=== PATIENT | female | born 1990 | race Caucasian/White ===

== ENCOUNTER 2020-11-20 17:11 | Emergency (ER) | payer BC, SELFPAY ==
[2020-11-20 17:11] VITALS: BP 135/78; PULSE 88; RESP 22; TEMP 36.7; O2SAT 99; BMI 20.7
--- NOTE | 2020-11-20 18:27 | HMH.EDUTC ---
[facility] [place] Clinical Impression: Close exposure to COVID-19 virus Disposition: Home, Self-Care Condition on Discharge: Good Instructions: DI for COVID-19 (Suspected or Confirmed ), Coronavirus Disease 2019, Preventing the Spread of Coronavirus Discharge Instructions Additional Instructions: *Monitor Temp, Over the counter Motrin or Tylenol as directed/as needed Tylenol every 4 hours and Motrin every 6 hours (as long as your family doctor has told you that you can take it) for fever or pain. and straight to ER if unable to lower temp less than 101.0 after medication given *Warm salt water gargles may help to soothe the throat *Throat Lozenges *Warm fluids like tea with honey may help to soothe the throat *Sleep elevated *Humidifier/Vaporizer Follow up IMMEDIATELY for new or worsening symptoms or no Noticeable improvement over the next 48-72 hours. 911 for difficulty breathing or swallowing You were tested for today for COVID19 your test result should be back in the next 24-48 hours, you may call to the [facility] to see if your test results are back in the next 48 hours [phone] [facility] hours are 9am-9pm You was given a handout with instructions for Self Quarantine and Self isolation for while you wait on test results and what to do if they are positive If you are positive the Health Dept will be contacting you also Make sure to take your Vitamins Vit. C Vit D and Zinc if you can take them Prescriptions: guaiFENesin [Mucinex 600mg tablet] 1 - 2 tab PO Q12H PRN #20 tab.er.12h PRN Reason: Congestion Transmission Status: Pending to [facility] 384 Referrals: Provider,Referral, [Primary Care Provider] - As needed Forms: Work/School Release Time of Disposition: 18:33 Medical Decision Making - Pb Inquiry Pt receiving controlled substance: No Pb was queried for this patient: No Vital Signs: 11/20/20 17:11 Temperature 98.1 F Temperature Source Oral Pulse Rate [Left Radial] 88 Respiratory Rate 22 Blood Pressure [Right Arm] 135/78 Blood Pressure Mean [Right Arm] 97 Blood Pressure Source [Right Arm] Automatic Cuff Blood Pressure Position [Right Arm] Sitting 02 Sat by Pulse Oximetry 99 Oxygen Delivery Method Room Air Orders (Tests/Meds): ORDERS Category Date Time Status Covid-19 Nasal PCR ([facility]) Routine Lab 11/20/20 18:10 Received [facility] HPI - General Stated complaint: covid test Time Seen by Provider: 11/20/20 18:27 Mode of Arrival: Ambulatory Source of Information: Patient Limitations: No Limitations Description of Symptoms (Recalled from Triage Doc. by RN): covid test, direct exposure, loss of taste smell HEENT Symptoms (Recalled from RN notes): Yes Resp Symptoms (Recalled from RN notes): No Skin Symptoms (Recalled from RN notes): No MS Symptoms (Recalled from RN notes): No Functional Status (Recalled from RN notes): na - History of Present Illness Provider Complaint: Patient states that her recently tested positive for COVID States that she has been having body aches, chills, fever nasal congestion and feeling like it is trying to move in her chest with cough States that she wanted to get tested for COVID Denies SOA Recently loss taste and smell - Related Data Home Medications Medication Instructions Recorded Confirmed Cetirizine HCl [Zyrtec] 10 mg PO DAILY 11/17/17 11/17/17 Previous Rx's Medication Instructions Recorded Polymyxin B Sulf/Trimethoprim 2 drops EYE-LEFT Q6H #1 bottle 11/17/17 [Polytrim Eye Drops] guaiFENesin [Mucinex 600mg tablet] 1 - 2 tab PO Q12H PRN #20 11/20/20 tab.er.12h Allergies Allergy/AdvReac Type Severity Reaction Status Date / Time No Known Allergies Allergy Verified 08/26/17 18:01 - Worker's Comp Is this a Worker's Comp case?: No [facility] History - Hepatitis A Screen Drug use history?: No High risk sexual behaviors?: No History of sexually transmitted infection?: No Currently employed?: 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
[2020-11-20 18:47] LABS: UTC Pregnancy Test, Urine Negative (Negative)
[2020-11-20 19:16] VITALS: BP 135/78; PULSE 88; RESP 22; TEMP 36.7; O2SAT 99
--- NOTE | 2020-11-21 10:52 | PC.NURSE ---
PATIENT NOTIFIED OF POSITIVE COVID TEST AT THIS TIME
== END 2020-11-20 19:17 | disposition home or self-care (01) ==
PROVIDERS: Emergency Provider Nurse Practitioner
DX: U07.1 COVID-19 (principal); R43.9 Unspecified disturbances of smell and taste
CPT/HCPCS: 81025; 99202; G0463; U0003

== ENCOUNTER → 2022-06-07 11:03 | Outpatient (CLI) | payer BC, SELFPAY ==
[2022-06-08 09:27] LABS: Progesterone 20.8 ng/mL (.)
== END ==
PROVIDERS: Visit Provider Obstetrics & Gynecology
DX: N92.6 Irregular menstruation, unspecified (principal); Z32.00 Encounter for pregnancy test, result unknown
CPT/HCPCS: 36415; 84144; 84702

== ENCOUNTER → 2022-06-21 17:29 | Outpatient (CLI) | payer BC, SELFPAY | PROVIDERS: Visit Provider Obstetrics & Gynecology | DX: Z34.90 Encounter for supervision of normal pregnancy, unspecified, unspecified trimester (principal) | CPT/HCPCS: 87086; 87088; 87186 ==

== ENCOUNTER → 2022-07-12 10:45 | Outpatient (CLI) | payer BC, SELFPAY ==
[2022-07-12 12:08] LABS: Basophils % 0.3 % (0.1-2.0); Eosinophils # 0.1 K/mm3 (0.0-0.4); Eosinophils % 0.7 % (0.1-12.0); Hematocrit 40.7 % (37.0-47.0); Hemoglobin 12.8 g/dL (12.2-16.2); Lymphocytes # 1.3 K/mm3 (0.7-4.5); Lymphocytes % 16.1 % (10-50); Mean Corpuscular HGB Conc 31.4 g/dL (31.8-35.4); Mean Corpuscular Hemoglobin 27.2 pg (27.0-31.2); Mean Corpuscular Volume 86.7 fl (81-99); Mean Platelet Volume 8.1 fl (7.4-10.4); Monocytes # 0.3 K/mm3 (0.1-1.0); Monocytes % 4.1 % (1.7-9.3); Neutrophils # 6.3 K/mm3 (1.8-7.8); Neutrophils % 78.8 % (37.0-80.0); Platelet Count 314 K/mm3 (142-424); Red Blood Count 4.69 M/mm3 (4.20-5.40); Red Cell Distribution Width 13.5 % (11.5-17.5); White Blood Count 7.9 K/mm3 (4.8-10.8)
[2022-07-13 12:14] LABS: Rapid Plasma Reagin Ab Titer Non Reactive (NonRea<1:1)
[2022-07-14 04:11] LABS: HIV Screen 4th Generation wRfx NON REACTIVE; Hepatitis B Surface Antigen NEGATIVE; Hepatitis C Antibody NON REACTIVE; Rubella Antibodies, IgG <0.90
== END ==
PROVIDERS: Visit Provider Obstetrics & Gynecology
DX: Z34.90 Encounter for supervision of normal pregnancy, unspecified, unspecified trimester (principal)
CPT/HCPCS: 36415; 85025; 86593; 86703; 86762; 86850; 87340; 87380; G0432

== ENCOUNTER → 2022-08-12 13:35 | Outpatient (CLI) | payer BC, SELFPAY ==
--- NOTE | 2022-08-12 13:36 | US_ITS ---
PROCEDURE INFORMATION: Exam: US ; Follow up Exam date and time: 08/12/2022 1:47 PM Age: 32 years old Clinical indication: Screening exam; Routine US, uterus; Additional info: 20 week anatomy scan LABS AND CLINICAL REPORTS: Last menstrual period start date: 03/27/2022 TECHNIQUE: Imaging protocol: Transabdominal ultrasound of the uterus, real time with image documentation. Follow-up (eg, re-evaluation of size by measuring standard growth parameters and amniotic fluid volume, re-evaluation of organ system(s) suspected or confirmed to be abnormal on a previous scan). COMPARISON: No relevant prior studies available. Findings: Gestation: Single intrauterine in a cephalic position at the present time. heart rate: Normal range heart rate measured at 146 BPM. cardiac arrhythmia noted by the technologist during the exam. Placenta: Placenta is anterior. No evidence of placenta previa. Amniotic fluid: Amniotic fluid volume appears adequate. Cervix is closed measuring 3.3 cm in length. anatomy head, spine, stomach, kidneys, urinary bladder and anterior abdominal wall and three-vessel cord were normally identified. BIOMETRY: Head circumference-19 weeks 2 days BPD-19 weeks 4 days. Humerus-20 weeks 6 days Femur length-20 weeks 4 days Abdominal circumference-20 weeks 3 days IMPRESSION: 1. Single viable intrauterine in a cephalic position whose gestational age based on present parameters is 20 weeks 2 days. 2. heart rate is within normal range however arrhythmia was noted by the technologist during the exam.
== END ==
PROVIDERS: PCP Obstetrics & Gynecology; Visit Provider Obstetrics & Gynecology
DX: Z34.90 Encounter for supervision of normal pregnancy, unspecified, unspecified trimester (principal); Z3A.20 20 weeks gestation of pregnancy
CPT/HCPCS: 76811

== ENCOUNTER → 2022-10-25 15:07 | Outpatient (CLI) | payer BC, SELFPAY ==
--- NOTE | 2022-10-25 15:13 | US_ITS ---
PROCEDURE: US OB FOLLOW UP CLINICAL INDICATION: sga, with JOHN COMPARISON: US US OB /MATERNAL DETAIL from 08/12/2022 FINDINGS: Transabdominal sonography was performed of the uterus. The following parameters are obtained: From her established due date she is 31weeks 1day Viable fetus in the cephalic presentation with an anterior placenta grade 1. heart rate: 134bpm bpm. BPD: 30weeks 1day OFD: 32weeks HC: 31weeks 4days AC: 31weeks 1day FL: 31weeks 5days Estimated weight is 3 pounds 13 ounces, 1721 grams. 40th percentile HC/AC: 1.06 Cephalic index: 0.73 FL/BPD: 0.81 FL/AC: 0.23 Amniotic fluid index: 11.43cm No obvious anomalies evident. profile seen, stomach, bladder, kidneys, three-vessel cord, four chamber heart, LVOT, RVOT appear normal. Cervix: 3.5 cm IMPRESSION: 1. Viable fetus in the cephalic presentation with an anterior placenta grade 1. 2. Fluid is within normal limits. 3. There has been good interval growth with the fetus at the 40th percentile. 4. There is no arrhythmia seen today. Regular heart rate. Dictated by: Jason Dubois MD 10/25/2022 19:26 Jason Dubois MD in OV 10/25/2022 19:26
== END ==
PROVIDERS: PCP Obstetrics & Gynecology; Visit Provider Obstetrics & Gynecology
DX: O28.8 Other abnormal findings on antenatal screening of mother (principal); O36.5930 Maternal care for other known or suspected poor fetal growth, third trimester, not applicable or unspecified; Z3A.31 31 weeks gestation of pregnancy
CPT/HCPCS: 76816; 76820

== ENCOUNTER 2022-12-20 09:35 | Outpatient (CLI) | payer BC, SELFPAY ==
[2022-12-20 09:42] VITALS: BMI 30.5
[2022-12-20 09:52] LABS: Microscopic, Urine URINE MICROSCOPIC (MICROSCOPIC)
[2022-12-20 09:53] VITALS: BP 144/97; PULSE 100; RESP 20; TEMP 36.9; O2SAT 99
[2022-12-20 09:53] LABS: Appearance,Urine SL CLOUDY (Clear); Bilirubin,Urine Negative (Negative); Blood, Urine Negative (Negative); Color,Urine YELLOW (Yellow); Glucose,Urine (UA) Negative (Negative); Ketones,Urine Negative (Negative); Leukocyte Esterase,Urine TRACE (Negative); Nitrate,Urine Negative (Negative); PH,Urine 7.5 (5.0-8.5); Protein,Urine Negative (Negative); Urobilinogen,Urine 0.2 EU/dl (0.2)
[2022-12-20 10:04] LABS: Amphetamine/Metha Screen,Urine Negative ng/ml (<1000); Barbiturates Screen,Urine Negative ng/ml (<200)
[2022-12-20 10:05] VITALS: BP 144/97; PULSE 100; RESP 20; TEMP 36.9; O2SAT 99; BMI 30.5
[2022-12-20 10:05] LABS: Benzodiazepines Screen,Urine Negative ng/ml (<200); Cannabinoid Screen,Urine Negative ng/ml (<50); WBC,Urine Occasional #/hpf (0-3)
[2022-12-20 10:06] LABS: Bacteria,Urine Trace /lpf; Cocaine Screen,Urine Negative ng/ml (<300)
[2022-12-20 10:07] LABS: Methadone Screen,Urine Negative ng/ml (<300)
[2022-12-20 10:08] LABS: Opiate Screen,Urine Negative ng/ml (<300); Phencyclidine Screen,Urine Negative ng/ml (<25)
[2022-12-20 10:09] LABS: Basophils % 0.2 % (0.1-2.0); Eosinophils # 0.1 K/mm3 (0.0-0.4); Eosinophils % 0.9 % (0.1-12.0); Hematocrit 41.8 % (37.0-47.0); Hemoglobin 13.3 g/dL (12.2-16.2); Lymphocytes # 1.3 K/mm3 (0.7-4.5); Lymphocytes % 12.2 % (10-50); Mean Corpuscular HGB Conc 31.9 g/dL (31.8-35.4); Mean Corpuscular Hemoglobin 28.4 pg (27.0-31.2); Mean Platelet Volume 8.7 fl (7.4-10.4); Monocytes # 0.5 K/mm3 (0.1-1.0); Monocytes % 4.6 % (1.7-9.3); Neutrophils # 8.7 K/mm3 (1.8-7.8); Neutrophils % 82.1 % (37.0-80.0); Platelet Count 278 K/mm3 (142-424); Red Cell Distribution Width 14.6 % (11.5-17.5); White Blood Count 10.6 K/mm3 (4.8-10.8)
[2022-12-20 10:20] LABS: Alanine Aminotransferase 24 U/L (12-78); Anion Gap 15.1 mEq/L (5-15); Aspartate Amino Transferase 34 U/L (14-36); Blood Urea Nitrogen 8 mg/dl (7-17); Calcium 9.6 mg/dl (8.4-10.2); Carbon Dioxide 20 mmol/L (22.0-30.0); Chloride 104 mmol/L (98-107); Creatinine Clearance Estimated 237 mL/min (50-200); Estimated Glomerular Filt Rate 145 ml/min (>60); GFR (African American) 175 ML/MIN (>60); Glucose 90 mg/dl (74-100); Potassium 4.1 mmoL/L (3.5-5.1); Sodium 135 mmol/L (136-145); Uric Acid 5.5 mg/dl (2.5-6.2)
[2022-12-20 10:24] LABS: D-Dimer 1.71 ug/mL (0.0-0.5)
[2022-12-20 10:34] LABS: Activated Partial Thrombo Time 25.8 seconds (22.8-30.6); Fibrinogen 506 mg/dL (229.9-363.5); INR 0.88 (0.9-1.1); Prothrombin Time 9.6 seconds (10.1-12.5)
[2022-12-20 11:44] LABS: Creatinine,Urine Random 57 mg/dL (Not Estab.)
[2022-12-20 11:56] LABS: Microalbumin < 6.000 mg/L (0-16.7)
== END 2022-12-20 12:35 | disposition home or self-care (01) ==
LOC: OBOUT 09:37 → OB 09:37
PROVIDERS: Visit Provider Obstetrics & Gynecology
DX: O13.3 Gestational [pregnancy-induced] hypertension without significant proteinuria, third trimester (principal); Z3A.39 39 weeks gestation of pregnancy
CPT/HCPCS: 36415; 59025; 80048; 80305; 81001; 82043; 82570; 84450; 84460; 84550; 85025; 85378; 85384; 85610; 85730; G0463

== ENCOUNTER 2022-12-20 21:15 | Inpatient (IN) | payer BC, SELFPAY ==
[2022-12-20 16:33] VITALS: BMI 30.5
[2022-12-20 16:34] VITALS: BP 146/88; PULSE 94; RESP 18; TEMP 36.7; O2SAT 98
[2022-12-20 17:41] LABS: Basophils % 0.1 % (0.1-2.0); Eosinophils # 0.1 K/mm3 (0.0-0.4); Eosinophils % 0.3 % (0.1-12.0); Hematocrit 40.7 % (37.0-47.0); Hemoglobin 13.2 g/dL (12.2-16.2); Lymphocytes # 1.5 K/mm3 (0.7-4.5); Lymphocytes % 10.1 % (10-50); Mean Corpuscular HGB Conc 32.5 g/dL (31.8-35.4); Mean Corpuscular Hemoglobin 28.2 pg (27.0-31.2); Mean Corpuscular Volume 86.6 fl (81-99); Mean Platelet Volume 9.1 fl (7.4-10.4); Monocytes # 0.5 K/mm3 (0.1-1.0); Monocytes % 3.5 % (1.7-9.3); Neutrophils # 12.4 K/mm3 (1.8-7.8); Neutrophils % 85.9 % (37.0-80.0); Platelet Count 302 K/mm3 (142-424); Red Cell Distribution Width 14.5 % (11.5-17.5); White Blood Count 14.5 K/mm3 (4.8-10.8)
[2022-12-20 17:46] LABS: MANUAL DIFFERENTIAL MANUAL DIFFERENTIAL (MANUAL DIFF)
[2022-12-20 18:05] LABS: Lymphocytes % 12 % (10-50); Monocytes % 1 % (2-9); Neutrophils % 87 % (42-76); Platelet Estimate Normal; RBC Morphology Normal; Total Cells Counted 100
[2022-12-20 18:41] VITALS: BP 146/88; PULSE 94; RESP 18; TEMP 36.7; O2SAT 99; BMI 30.5
[2022-12-20 19:36] VITALS: BP 146/82; PULSE 82; RESP 17; TEMP 37.1; O2SAT 98
[2022-12-20 20:53] VITALS: BP 145/88; PULSE 96; RESP 18; O2SAT 97
[2022-12-20 22:13] VITALS: BP 129/73; PULSE 73; RESP 17; TEMP 36.7; O2SAT 97
[2022-12-20 23:02] VITALS: BP 127/70; PULSE 76; RESP 17; O2SAT 97
[2022-12-21 00:06] VITALS: BP 138/79; PULSE 103; RESP 18; O2SAT 97
[2022-12-21 01:35] VITALS: BP 117/61; PULSE 71; RESP 17; O2SAT 97
[2022-12-21 03:08] VITALS: BP 137/83; PULSE 75; RESP 17; O2SAT 97
[2022-12-21 04:07] VITALS: BP 140/90; PULSE 111; RESP 18; TEMP 37.1; O2SAT 97
[2022-12-21 06:36] VITALS: BP 137/94; PULSE 114
--- NOTE | 2022-12-21 08:25 | EXP.OB.APHP ---
OB - H&P: HPI Antepartum History of Present Illness Chief complaint: Gestational Hypertension History of present illness: Mrs Sadia Lugo is a 32 yo at 39w2d who presented to [facility] L&D for induction of labor secondary to gestational hypertension. She has had good care. She has had mild and normotensive blood pressures. History of Present Criteria for establishing EDC:: LMP confirmed by 1st trimester US care: good care Ultrasounds: normal mid trimester US Obstetrical complications: gestational hypertension Medical complications: none Labs Blood type: O (+) positive Rubella: nonimmune RPR/VDRL: nonreactive GBS status: positive HBsAG: [facility] Disclaimer: The information contained in this section may have been updated after the patient was seen, as this information can be updated by other users. Medical History (Updated 12/21/22 @ 08:32 by Muna Munroe DO) 39 weeks gestation of Elevated blood pressure affecting in third trimester, antepartum Gestational hypertension Group B streptococcal bacteriuria Hemorrhoids during in third trimester Nausea and vomiting during Prolapse of female pelvic organs Rubella non-immune status, antepartum Surgical History No significant past surgical history Family History Other Depression Social History Smoking Status: Never smoker alcohol intake: current current occupational status: employed Travel in the last 8 weeks: None Review of Systems Review of Systems Review of systems:: pertinent systems reviewed and negative unless documented below Meds Home Medications and Allergies Home Medications Medication Instructions Recorded Confirmed Type vit no.95-ferrous 1 tab PO DAILY Supplement 12/21/22 12/21/22 History fumarate 28 mg-folic acid 800 mcg tablet () New Prescriptions to Start Prescriptions: Allergies Allergy/AdvReac Type Severity Reaction Status Date / Time No Known Allergies Allergy Verified 12/20/22 08:50 OB - H&P: Exam Physical Exam Vital signs: Temp Pulse Resp BP Pulse Ox O2 Del Method 98.8 F 114 H 18 137/94 H 97 Room Air 12/21/22 04:07 12/21/22 06:36 12/21/22 04:07 12/21/22 06:36 12/21/22 04:07 12/21/22 04:07 Constitutional no acute distress and cooperative Routine HEENT Exam Head: Present normocephalic and atraumatic Eye: Absent conjunctivae pink ENT: Present mucous membranes moist and dentition normal Routine Neck Exam Present full ROM Routine Respiratory Exam Present CTA bilaterally and normal respiratory effort Routine Cardiovascular Exam Present RRR Routine Abdominal Exam Present soft (Gravid); Absent tenderness Routine Rectal Exam Patient deferred: visual exam Routine Exam External: Present normal urethra appearance; Absent erythema, tenderness, lesions or lacerations Routine Extremities Exam Present full ROM; Absent edema or calf tenderness Routine Neurological Exam Present alert, oriented X3 and moving all extremities Routine Psychiatric Exam Present normal affect and cooperative Detailed Labor and Delivery Exam Dilation (cm): 2 Effacement (%): 50 Cervix position: mid station: -2 Consistency: soft Membranes: artificially ruptured (amniotomy performed at 0737 , clear fluid noted) Amniotic fluid: clear Baseline heart rate: 130 monitor accelerations: Present monitor decelerations: None FDC variability: Moderate (11-25) Contraction frequency (min): 3 OB - Results Labs Labs: Short CBC 12/20/22 Range/Units 17:10 WBC 14.5 H D (4.8-10.8) K/mm3 Hgb 13.2 (12.2-16.2) g/dL Hct 40.7 (37.0-47.0) % Plt Count 302 (142-424) K/mm3 OB - A/P Antepartum (1) 39 weeks
--- NOTE | 2022-12-21 11:48 | EXP.ANES.CKL ---
[facility] Disclaimer: The information contained in this section may have been updated after the patient was seen, as this information can be updated by other users. Medical History (Updated 12/21/22 @ 08:32 by Muna Munroe DO) 39 weeks gestation of Elevated blood pressure affecting in third trimester, antepartum Gestational hypertension Group B streptococcal bacteriuria Hemorrhoids during in third trimester Nausea and vomiting during Prolapse of female pelvic organs Rubella non-immune status, antepartum Surgical History No significant past surgical history Family History Other Depression Social History Smoking Status: Never smoker alcohol intake: current substance use type: denies use current occupational status: employed Travel in the last 8 weeks: None [facility] Anesthesia Checklist Patient Identification Patient Identification: Arm Band Structural Data Admitted From: Inpatient Planned Operative Procedure/s: Labor Epidural Consent for Planned Operative Procedure(s) Verified: Yes Verified Documents: Surgical Consent and History and Physical NPO Status Verified Time NPO: 00:00 Additional verifications Anesthesia Reactions: No Airway Assessment Dentition: Good Dentition Neurological Assessment Level of Consciousness: Awake and Alert Anesthesia Plan Anesthesia Risk discussed: Yes Anesthesia Plan: Verified ASA Class: II Anesthesia Type: Epidural
--- NOTE | 2022-12-21 14:31 | EXP.DN ---
Delivery Note Delivery Date:: 12/21/22 Delivery Time:: 14:12 Anesthesia Type: Epidural Was labor medically induced?: Yes Induction method: per misoprostol protocol Gestational age (weeks): 39 Infant delivered prior to 39 weeks?: No Gender: Female at 1 minute: 8 at 5 minutes: 9 Delivery Procedure:: Mom complete with epidural. Pushed for approximately 3 minutes. Head delivered spontaneously over intact perineum in KARLA position. No nuchal cord. Anterior shoulder delivered spontaneously. Posterior shoulder and remainder of body delivered spontaneously. Baby placed on maternal abdomen, mouth and nares bulb suctioned, warmed/dried and stimulated. Delayed cord clamping was performed for 180 seconds. Cord was clamped and cut by father of baby. Cord blood was obtained. Placenta delivered spontaneously and intact. First degree laceration repaired with 3-0 Vicryl. Hemostasis noted. Mom and baby were skin to skin and doing well after delivery. Live female baby (baby's name is Baylee) APGARs 8, 9 EBL 100 mL Placental Delivery Description: Spontaneous
[2022-12-21 21:18] VITALS: BP 141/87; PULSE 93; RESP 18; TEMP 36.8; O2SAT 97
[2022-12-22 07:11] LABS: Basophils % 0.3 % (0.1-2.0); Eosinophils # 0.1 K/mm3 (0.0-0.4); Eosinophils % 0.9 % (0.1-12.0); Hematocrit 39.5 % (37.0-47.0); Hemoglobin 12.5 g/dL (12.2-16.2); Lymphocytes # 1.7 K/mm3 (0.7-4.5); Lymphocytes % 15.5 % (10-50); Mean Corpuscular HGB Conc 31.7 g/dL (31.8-35.4); Mean Corpuscular Hemoglobin 28.4 pg (27.0-31.2); Mean Corpuscular Volume 89.8 fl (81-99); Mean Platelet Volume 9.2 fl (7.4-10.4); Monocytes # 0.7 K/mm3 (0.1-1.0); Monocytes % 6.2 % (1.7-9.3); Neutrophils # 8.4 K/mm3 (1.8-7.8); Platelet Count 235 K/mm3 (142-424); Red Cell Distribution Width 14.7 % (11.5-17.5); White Blood Count 10.9 K/mm3 (4.8-10.8)
[2022-12-22 10:25] VITALS: BP 147/83; PULSE 98; RESP 18; TEMP 36.6; O2SAT 97
--- NOTE | 2022-12-22 10:44 | EXP.DC.SUM ---
General Admission date:: 12/20/22 Discharge date: 12/22/22 HPI HPI HPI: PPD # 1 s/p DAVE Mccullough is doing well. Pain is controlled. Light lochia. Voiding without difficulty and passing flatus. Tolerating regular diet. Breast feeding. Ambulating well ad parminder. Denies headaches and vision changes. Admits to bilateral feet swelling. No calf pain. Hospital Course Hospital Course Hospital Course: Mrs Sadia Lugo is a 32 yo at 39w2d who presented to [facility] L&D for induction of labor secondary to gestational hypertension. She has had good care. She has had mild and normotensive blood pressures. Lab work was within normal limits. She underwent induction of labor with Cytotec followed by Pitocin. She had a normal spontaneous vaginal delivery on 12/21/22 at 1412. She delivered a live female baby, Baylee, weighing 6 lb 15 oz, APGARs 8, 9. EBL 100 mL. She did well . Pain controlled. Light lochia. Breast feeding. Voiding without difficulty and passing flatus. Tolerating regular diet and ambulating well ad parminder. Vital signs stable with continued mild range and normotensive. Heart regular rate and rhythm. Lungs clear to auscultation. Abdomen soft, nontender. + 1 bilateral lower extremity edema. No calf tenderness. Normal hospital course. She was discharged home on PPD # 1. Exam Data for Last 24 hours Vital signs and Labs for Last 24 Hours: Temp Pulse Resp BP Pulse Ox O2 Del Method 98.3 F 93 H 18 141/87 H 97 Room Air 12/21/22 21:18 12/21/22 21:18 12/21/22 21:18 12/21/22 21:18 12/21/22 21:18 12/21/22 21:18 Laboratory Results - last 24 hr 12/22/22 06:20: WBC 10.9 H, RBC 4.40, Hgb 12.5, Hct 39.5, MCV 89.8, MCH 28.4, MCHC 31.7 L, RDW 14.7, Plt Count 235, MPV 9.2, Neut % (Auto) 77.0, Lymph % (Auto) 15.5, [place] % (Auto) 6.2, Eos % (Auto) 0.9, Baso % (Auto) 0.3, Neut # (Auto) 8.4 H, Lymph # (Auto) 1.7, [place] # (Auto) 0.7, Eos # (Auto) 0.1, Baso # (Auto) 0.0 I & O for Last 24 hours: Intake & Output 12/19/22 12/20/22 12/21/22 12/22/22 23:59 23:59 23:59 23:59 Weight 201 lb Constitutional Constitutional: no acute distress *Routine HEENT Exam Head: Present normocephalic and atraumatic Eye: Absent conjunctivae pink ENT: Present mucous membranes moist *Routine Neck Exam Neck: Present full ROM *Routine Respiratory Exam Respiratory: Present CTA bilaterally and normal respiratory effort *Routine Cardiovascular Exam Cardiovascular: Present RRR *Routine Abdominal Exam Abdominal: Present soft and normoactive bowel sounds; Absent tenderness or distended *Routine Rectal Exam Patient deferred: visual exam *Routine Exam Patient deferred: external exam *Routine Extremities Exam Extremities: Present edema (+1 bilateral lower extremity edema) and full ROM; Absent calf tenderness *Routine Neurological Exam Neurological: Present alert, oriented X3 and moving all extremities Routine Psychiatric Exam Psychiatric: Present normal affect and cooperative Results Data Completed and Pending Labs on day of discharge: Labs from last 24 hours 12/22/22 06:20 WBC 10.9 H RBC 4.40 Hgb 12.5 Hct 39.5 MCV 89.8 MCH 28.4 MCHC 31.7 L RDW 14.7 Plt Count 235 MPV 9.2 Neut % (Auto) 77.0 Lymph % (Auto) 15.5 [place] % (Auto) 6.2 Eos % (Auto) 0.9 Baso % (Auto) 0.3 Neut # (Auto) 8.4 H Lymph # (Auto) 1.7 [place] # (Auto) 0.7 Eos # (Auto) 0.1 Baso # (Auto) 0.0 DS: Diagnosis Discharge Diagnosis (1) 39 weeks gestation of : Status: Acute Code(s): Z3A.39 - 39 weeks gestation of (2) Gestational hypertension: Status: Acute Code(s): O13.9 - Gestational [-induced] hypertension without significant proteinuria, unspecified trimester (3) Group B streptococcal bacteriuria: Status: Acute Code(s): R82.71 - Bacteriuria (4) Rubella non-immune status, antepartum: Status: Acute Code(s): O09.899 - Supervision of other high ri
== END 2022-12-22 17:02 | disposition home or self-care (01) | DRG 807 ==
LOC: OUTP 21:16 → OB 21:16
PROVIDERS: Admitting Provider Obstetrics & Gynecology; Visit Provider Obstetrics & Gynecology
DX: O13.4 Gestational [pregnancy-induced] hypertension without significant proteinuria, complicating childbirth (principal); Z37.0 Single live birth; Z3A.39 39 weeks gestation of pregnancy
CPT/HCPCS: 59409; 36415; 59025; 85007; 85025; 86850; 94761; G0283; J0290